=== PATIENT | male | born 1955 | race Caucasian/White ===

== ENCOUNTER 2017-06-07 11:23 | Emergency (ER) | payer OTHER ==
[~2017-06-07] VITALS: Ht 175.3 cm; Wt 85.3 kg
--- NOTE | 2017-06-07 13:22 | ULTRASOUND REPORT ---
EXAMINATION: US SCROTUM CLINICAL INFORMATION: Left-sided testicular swelling. Rule out torsion, hernia, varicocele. COMPARISON: None. TECHNIQUE: A sonogram of the scrotum was performed assessing jung-scale appearance and color Doppler flow. FINDINGS: RIGHT: Right testicle measures 4.1 x 2.4 x 2.6 cm, volume 18.2 mL. Parenchymal echotexture is normal. No focal testicular parenchymal lesions are visualized. Normal symmetric intratesticular arterial and venous flow is visualized. Right epididymal head is normal in size. No right hydrocele or varicocele is seen. LEFT: Left testicle measures 4.0 x 2.6 x 2.6 cm, volume 19.2 mL. Parenchymal echotexture is normal. No focal testicular parenchymal lesions are visualized. Normal symmetric intratesticular arterial and venous flow is visualized. Of note, however, the flow velocity within the left testicular arteries is higher than on the contralateral side, ranging up to 12.8 cm/s versus 3.7 cm/s on the right side. Left epididymis is not visualized due to mass effect by a large left-sided hydrocele, which measures at least 8.0 x 4.8 x 5.9 cm. No varicocele is seen. IMPRESSION: 1. No evidence of testicular torsion or scrotal varicocele. 2. Large left-sided hydrocele is seen, obscuring assessment of the left epididymis. 3. Qualitatively, bilaterally symmetric arterial flow to the testicles is seen. However, on measurement of the flow velocities, increased velocities are seen within the testicular arteries in the left testicle compared to the right side. Findings are nonspecific but do raise the suspicion of subtle orchitis. Close clinical correlation and follow-up is requested.
[2017-06-07 15:37] VITALS: BP 138/84
--- NOTE | 2017-06-07 15:44 | ED GI/GU/ABDOMINAL COMPLAINT ---
History of Present Illness General Chief Complaint: Male Genitourinary Problems Stated Complaint: TESTICLE SWELLING Source: patient Exam Limitations: no limitations Vital Signs & Intake/Output Vital Signs & Intake/Output Vital Signs Date Time Temp Pulse Resp B/P B/P Pulse O2 O2 Flow FiO2 Mean Ox Delivery Rate 06/07 1537 97.7 66 18 138/84 98 Room Air 06/07 1139 97.6 74 20 123/78 97 Room Air Allergies Coded Allergies: NO KNOWN ALLERGIES (04/16/13) Triage Note: C/O SWOLLEN LEFT TESTICLE X 4-5 MONTHS. STATES SOMETIMES IT GOES AWAY BUT THIS TIME IT DIDN'T Triage Nurses Notes Reviewed? yes Onset: Gradual Duration: week(s): Timing: recent history Quality/Severity: moderate Location: left testicle HPI: 62yo male presents to ED complaining of left testicular swelling x weeks. Patient states he has had swelling in the past however it went away and its own and he was not concerned. Patient reports gradually increasing swelling over the past several weeks without resolution. Patient had no injury to onset of symptoms. Patient denies testicular pain, dysuria, pyuria, abdominal pain, vomiting, diarrhea, constipation. Past History Travel History Traveled to [place] past 21 day No Medical History Any Pertinent Medical History? none Surgical History Surgical History: non-contributory Psychosocial History What is your primary language Irish Tobacco Use: Current Daily Use Daily Tobacco Use Amount/Type: => 5 Cigarettes daily ETOH Use: denies use Illicit Drug Use: denies illicit drug use Family History Hx Contributory? No Review of Systems Review of Systems Constitutional: Reports: no symptoms. EENTM: Reports: no symptoms. Respiratory: Reports: no symptoms. Cardiovascular: Reports: no symptoms. GI: Reports: no symptoms. Genitourinary: Reports: see HPI. Musculoskeletal: Reports: no symptoms. Skin: Reports: no symptoms. Neurological/Psychological: Reports: no symptoms. Hematologic/Endocrine: Reports: no symptoms. Immunologic/Allergic: Reports: no symptoms. All Other Systems: Reviewed and Negative Physical Exam Physical Exam General Appearance: well developed/nourished, no apparent distress, alert, awake Head: atraumatic, normal appearance Eyes: Bilateral: normal appearance. Ears, Nose, Throat, Mouth: hearing grossly normal Neck: normal inspection, supple, full range of motion Respiratory: no respiratory distress Gastrointestinal: normal bowel sounds, soft, non-tender, no organomegaly Male Genitals: swelling without tenderness to left scrotum with illumination of scrotum, right testicle is nontender, no erythema or warmth Back: normal inspection, normal range of motion Extremities: normal range of motion Neurologic/Psych: awake, alert, oriented x 3 Skin: intact, normal color, warm/dry Core Measures ACS in differential dx? No Sepsis Present: No Sepsis Focused Exam Completed? No Progress Differential Diagnosis: hernia, STD, testicular torsion, urethritis, UTI/pyelo, hydrocele, varicocele Plan of Care: Orders Procedure Date/time Status URINALYSIS 06/07 1543 Complete Laboratory Tests 06/07/17 1602: Urine Color YEL, Urine Clarity CLEAR, Urine pH 6.5, Ur Specific [place] 1.010, Urine Protein NEG, Urine Ketones NEG, Urine Nitrite NEG, Urine Bilirubin NEG, Urine Urobilinogen 0.2, Ur Leukocyte Esterase TRACE H, Ur Microscopic SEDIMENT EXAMINED, Urine RBC RARE, Urine WBC RARE, Urine Bacteria FEW H, Urine Hemoglobin TRACE-INTACT H, Urine Glucose NEG Ultrasound shows evidence for hydrocele, no evidence of testicular torsion. Patient has no testicular pain on physical exam. There is no evidence of erythema or warmth indicate acute infection. Patient was given a referral to urology. He was given strict return precautions. I discussed the discharge paperwork with this patient. He understands and agrees with the plan of care. Diagnostic Imaging: Viewed by Me: Ultrasound. Discussed w/RAD: Ultrasound. Radiology Impression: PATIENT: SALLY LISA PRESENT AGE: 62 PATIENT ACCOUNT NO: [id number] : 55 LOCATION: [facility] ORDERING PHYSICIAN: Florecita ENRIQUE SERVICE DATE: 06/07/17 EXAM TYPE: US - US-TESTICULAR EXAMINATION: US SCROTUM CLINICAL INFORMATION: Left- sided testicular swelling. Rule out torsion, hernia, varicocele. COMPARISON: None. TECHNIQUE: A sonogram of the scrotum was performed assessing jung-scale appearance and color Doppler flow. FINDINGS: RIGHT: Right testicle measures 4.1 x 2.4 x 2.6 cm, volume 18.2 mL. Parenchymal echotexture is normal. No focal testicular parenchymal lesions are visualized. Normal symmetric intratesticular arterial and venous flow is visualized. Right epididymal head is normal in size. No right hydrocele or varicocele is seen. LEFT: Left testicle measures 4.0 x 2.6 x 2.6 cm, volume 19.2 mL. Parenchymal echotexture is normal. No focal testicular parenchymal lesions are visualized. Normal symmetric intratesticular arterial and venous flow is visualized. Of note, however, the flow velocity within the left testicular arteries is higher than on the contralateral side, ranging up to 12.8 cm/s versus 3.7 cm/s on the right side. Left epididymis is not visualized due to mass effect by a large left-sided hydrocele, which measures at least 8.0 x 4.8 x 5.9 cm. No varicocele is seen. IMPRESSION: 1. No evidence of testicular torsion or scrotal varicocele. 2. Large left-sided hydrocele is seen, obscuring assessment of the left epididymis. 3. Qualitatively, bilaterally symmetric arterial flow to the testicles is seen. However, on measurement of the flow velocities, increased velocities are seen within the testicular arteries in the left testicle compared to the right side. Findings are nonspecific but do raise the suspicion of subtle orchitis. Close clinical correlation and follow-up is requested. DICTATED BY: Christina Benjamin MD DATE/TIME DICTATED:06/07/171312 TURF GROWER:DENA DATE/TIME TRANSCRIBED:06/07/171312 CONFIDENTIAL, DO NOT COPY WITHOUT APPROPRIATE AUTHORIZATION. <Electronically signed in Other Vendor System> SIGNED BY: Christina Benjamin MD 06/07/17 1322 Initial ED EKG: none Departure Departure Disposition: HOME OR SELF CARE Condition: Stable Clinical Impression Primary Impression: Hydrocele in adult Referrals: Patient Has No Primary Care Dr (PCP/Family) Alexander Garcia MD Additional Instructions: You were given a referral to a urologist regarding your hydrocele. Take ibuprofen as prescribed as needed for pain. Follow-up with urologist. Return with any worsening symptoms or concerns his testicular pain, fevers, abdominal pain, vomiting, painful urination. Please note that there might be incidental findings in your evaluation that are unrelated to the current emergency department visit. Please notify your primary care doctor about this emergency department visit in order to obtain and review all of the testing performed so that these incidental findings can be monitored as needed. If you had an x-ray performed, please understand that some fractures may not be seen on the initial set of x-rays. If your symptoms persist you might need a repeat set of x-rays to check for such a fracture. If you had a laceration evaluated, please understand that foreign bodies such as glass or wood may not be visible to the naked eye or on plain x-rays. If the wound becomes red, swollen, increasingly more painful or if there is any drainage from the wound, please have it reevaluated by a physician for the possibility of a retained foreign body. If you're unable to follow up as outlined in the discharge instructions please return to the emergency department. Thank you for choosing the [facility] for your care. It was a pleasure to serve you today. Departure Forms: Customer Survey General Discharge Information
== END 2017-06-07 16:44 ==
LOC: ERH 11:23
DX: N43.3 Hydrocele, unspecified (principal)
CPT/HCPCS: 81001